=== PATIENT | female | born 1955 | race Caucasian/White ===

== ENCOUNTER 2019-03-21 11:31 | Inpatient (IN) | payer OTHER ==
[~2019-03-21] VITALS: Ht 149.9 cm; Wt 44.9 kg
[2019-03-21] MEDS ORDERED: LISINOPRIL10 MG (12:04)
[2019-03-21] MEDS ORDERED: [UNRECOGNIZED DRUG - OTHER] (12:06)
--- NOTE | 2019-03-21 12:07 | NUR ---
SE RECIBE PTE ALERTA ,ACOMPANADA POR FAMILIAR LA LOIDA REFIERE QUE LA PTE ESTA DEBIL ,SE LE SILVERIO S/V EL OXIGENO LO TIENE EN 86 % ,ES PTE DE CANCER DE SENO PTE REFIERE NO PODER SOSTENER DE PIE ,ES DEL DR.MORALES HIGUERA ,SUN INTERNIOSTA ,[facility]
--- NOTE | 2019-03-21 12:54 | NUR ---
EVALUA PACIENTE Y ORDENA TRATAMIENTO MEDICO DEL CUAL SE ORIENTA PACIENTE Y FAMILIAR,AMBAS REFIEREN ENTENDER. SE COLECTAN MUESTRAS DE LABORATORIOS LAS CUALES SON ROTULADAS Y ENVIADAS PARA ANALISIS SIGUIENDO MEDIDAS ASEPTICAS. SE NOTIFICAN ABGS A PERSONAL DE TERAPIA RESPIRATORIA. SE NOTIFICA ESTUDIO DE RX A PERSONAL DE TURNO. SE CONECTA PACIENTE A MONITOR CARDIACO Y OXIMETRIA DE PULSO CONTINUA.
--- NOTE | 2019-03-21 13:51 | NUR ---
SE RECIBE DE AREA DE OBSERVACION A AREA DE CRITICO. PACIENTE FEMENINA. ALERTA Y ORIENTADA EN PERSONA. SE CONECTA A MONITOR CARDIACO Y OXIMETRIA CON ALARMAS AUDIBLES. CANULA NASAL A 2LTS; SATURANDO 96% AL MOMENTO POR OXIMETRIA MANUAL. PIEL TIBIA AL TACTO. CANALIZACION PATENTE, QUINTON DE EDEMA Y/O ENROJECIMIENTO RECIBIENDO 0.9%NSS @125 ML/HR. SE OBSERVA CON EDEMA EN EXTREMIDADES. PACIENTE EN ESPERA DE RESULTADOS DE LABORATORIO PARA RE-EVALUACION MEDICA.
--- NOTE | 2019-03-21 16:01 | NUR ---
SE RECIBE PACIENTE DE TURNO ANTERIOR EN [facility] LA BASIA DE EMERGENCIAS.ESTA EN CAMA NUM 1,CONECTADA A MONITOR CARDIACO Y OXIMETRIA. RESPIRATORIAMENTE ASISTIDA CON O2 MEDIANTE CANULA NASAL A 2 LT. ESTA ORIENTADA EN PERSONA SERGIO NO EN TIEMPO NI LUGAR.VENADAJE EN SENO DERECHO ESTA LIMPIO Y SECO,QUINTON DE EDEMA.AREA DE VENOPUNCION ESTA LIMPIA Y SECA,QUINTON DE EDEMA.RECIBIENDO POR MEDIO DE VENA PERIFERAL EN BRAZO IZQ. 0.9 NSS A 125 ML/HR. ES MANTENIDA CON CABEZERA A 45 GRADOS,BARANDAS ELEVADAS,TIMBRE ACCESIBLE Y EN OBSERVACION ABHAY POR CAMBIOS EN CONDICION.
--- NOTE | 2019-03-22 00:59 | NUR ---
SE RECIBE PACIENTE ALERTA CON PERIODOS DE TIEMPO ,SE OBSERVA CON IVF PATNETE LIBNRED EDEMA EN BRAZO RT , SE OBSERVA EXTREMIDADES CON EDEMA, C/N 2 ML/MIN SE CONSULTA CON DR. CALLAHAN Y SE LE COLOCA ALEXANDRE CATHETER, SE OBSETIENE LA MUESTRA DE ORINA, PACIENTE CON TALONES PROTECTIVOS ,AREA SACRAL Y SENO RT CON VENDAJES LIMPIOS Y SECO . SE MANTIEIEN OBSERVACION PO RCAMBIOS EN AGUILAR CONDICON. EN CONSULTA CON DR. SAMUEL HIGUERA.
--- NOTE | 2019-03-22 04:00 | NUR ---
SE OBSEVA PACIETE CON DISTRESS RESIRATORIO CONSAT 69% SE OBSERVA CON RESPIRACIONES ABDOMIANL , PACIETE CON C/N2 LMIN. SE NOTIFICA A Y ORDENA COLOCAR V/MASK AL 50% Y SE NOTIFICA ATERAPIA RESPIRATORIA PARA YTRATAMINETO A ADMINITRAR POR MISS. NORRIS .SE LE ADMINITR AMEDICAMNTO Y SE MAGDIEL CON V/MASK 50%C SE MANTIEIEN OBSERVACION PO RCAMBIO SEN AGUILAR CONDCION.
--- NOTE | 2019-03-22 07:15 | NUR ---
SE RECIBE PACIENTE ALERTA SERGIO SOMNOLIENTA EN CAMA CONECTADA A TELEMETRIA Y OXIMETRIA CON BARANDAS ELEVEDAS. PACIENTE MUESTRA FOLE A GRAVEDAD Y SE MUESTRA CON SALINE LOCK EN BRAZO DERECHO. AMBOS EXTREMIDADES SUPERIORES SE MUESTRAN EDEMATOSAS. PACIENTE TIENE COLOCADA VENTURY MASK A 50% MOY ORDEN MEDICA. PACIENTE MUESTRA TALONARIOS PROTECTIVOS Y AREA SACRAL VENDADAS. PACIENTE SE MANTIENE BAJO OBSERVACION PARA CAMBIOS SIGNIFICATIVOS.
--- NOTE | 2019-03-22 08:45 | NUR ---
PATIENT LOOKS LETHARGIC AND HAS EYES FIXED WITHOUT MOVEMENTO OR RESPONSE TO STIMULI. PATIENT HAS A GASPING BREATHING PATTERN AND HAS 02 LEVELS AT 80%. DOCTOR IS NOTIFIED.
--- NOTE | 2019-03-22 09:30 | NUR ---
JENNIFER CHECKS PATIENTS AND ORDERS BIPAP AND LEVOPHED DUE TO LOW BLOOD PRESSURE. DOCTOR SAMUEL PEÑA ALSO CHECKS UP ON PATIENT AND ADMITS HER TO THE MEDICINE SNYDER FOR TERMINAL CARE.
--- NOTE | 2019-03-22 10:00 | NUR ---
PATIENT'S FAMILY MEMBER COMES TO SIGN DNI+DNR RELEASE FORM DUE TO HER CONDITION.
--- NOTE | 2019-03-22 10:09 | NUR ---
PATIENT WITH BIPAP IS COLD TO THE TOUCH AND UNRESPONSIVE TO STIUMULI. SKIN CARE COMES TO TREAT PATIENT AND PLACE CUSHIONS ON BIPAP MASK. RESPIRATORY THERAPISTS ALSO COMES TO GET ABG'S DUE TO BIPAP PROTOCOL. PATIENT HAS STABLE BLOOD PRESSURE AND CONTINUES IN CRITICAL OBSERVATION.
== END 2019-03-26 21:20 | disposition disaster alternative care site (69) | DRG 189 ==
LOC: ER 11:31 → MEDI 03-22 09:13
PROVIDERS: ADMIT Specialist
PROC: 3E0F7GC Introduction of Other Therapeutic Substance into Respiratory Tract, Via Natural or Artificial Opening (ICD-10-PCS; principal; 2019-03-22)
PROC: 5A09457 Assistance with Respiratory Ventilation, 24-96 Consecutive Hours, Continuous Positive Airway Pressure (ICD-10-PCS; 2019-03-22)
PROC: 4A033R1 Measurement of Arterial Saturation, Peripheral, Percutaneous Approach (ICD-10-PCS; 2019-03-22)
PROC: 4A12X4Z Monitoring of Cardiac Electrical Activity, External Approach (ICD-10-PCS; 2019-03-22)
DX: J96.02 Acute respiratory failure with hypercapnia (principal); R57.8 Other shock; E87.2 Acidosis; C78.00 Secondary malignant neoplasm of unspecified lung; C77.1 Secondary and unspecified malignant neoplasm of intrathoracic lymph nodes; C79.51 Secondary malignant neoplasm of bone; C78.2 Secondary malignant neoplasm of pleura; J91.0 Malignant pleural effusion; F20.89 Other schizophrenia; J96.01 Acute respiratory failure with hypoxia; C50.811 Malignant neoplasm of overlapping sites of right female breast; L89.150 Pressure ulcer of sacral region, unstageable; I89.0 Lymphedema, not elsewhere classified; I10 Essential (primary) hypertension; Z66 Do not resuscitate; Z74.01 Bed confinement status; Z88.0 Allergy status to penicillin; Z99.81 Dependence on supplemental oxygen; Z51.5 Encounter for palliative care